=== PATIENT | female | born 1980 | race Caucasian/White ===

== ENCOUNTER → 2017-02-21 | Outpatient (CLI) | payer OTHER ==
[~2017-02-21] VITALS: Ht 175.3 cm; Wt 98.4 kg
[~2017-02-21] MED LIST: ACET50TA PO; HAIR1TAB5 PO; IBUP80TA PO; LIDOCAINE 2% INJ 100 MG/5 ML SDV (FOR ANES.) As Ordered ONE; MAGN1CAP PO; MULTCAP8 PO; NS 1,000 ML IV SCH; OMEP40CA2 PO; PREN27TA3 PO; PROPOFOL 200 MG/20 ML VIAL As Ordered ONE; RANI1TAB6 PO; ZYRT10CA PO
--- NOTE | 2017-02-21 08:56 | ROOR ---
Patient Name: Cydney Dinero Procedure Date: 02/21/2017 8:37 AM Date of : 1980 Age: 37 Room: [facility] Gender: Female Note Status: Finalized Procedure: Upper GI endoscopy Indications: Heartburn, Suspected esophageal reflux Providers: Wil MCMILLAN MD Referring MD: Tia DOSS NP Requesting Provider: Medicines: Monitored Anesthesia Care Complications: No immediate complications. Procedure: Pre-Anesthesia Assessment: - The heart rate, respiratory rate, oxygen saturations, blood pressure, adequacy of pulmonary ventilation, and response to care were monitored throughout the procedure. The Endoscope was introduced through the mouth, and advanced to the second part of duodenum. The upper GI endoscopy was accomplished without difficulty. The patient tolerated the procedure well. Findings: Minimal inflammation was found in the gastric antrum. Biopsies were taken with a cold forceps for Helicobacter pylori testing. The esophagus was normal. The stomach was otherwise normal. The examined duodenum was normal. Impression: - Minimal gastritis. Biopsied. - Otherwise normal stomach. - Normal esophagus. - Normal examined duodenum. Recommendation: - Follow an antireflux regimen. - Continue present medications. - Consider reducing Omeprazole to 20 mg q day after 3 months.--Please let me know. - Telephone endoscopist for pathology results in 2 weeks. Wil Mcmillan MD Wil MCMILLAN MD 02/21/2017 8:55:52 AM This report has been signed electronically. Number of Addenda: 0 Note Initiated On: 02/21/2017 8:37 AM Estimated Blood Loss: Estimated blood loss: none.
[2017-02-21 09:20] VITALS: BP 137/71
== END ==
LOC: M OPP 07:29
PROVIDERS: ATTEND Internal Medicine Gastroenterology
DX: R12 Heartburn (principal); K29.70 Gastritis, unspecified, without bleeding; R06.83 Snoring; Z79.899 Other long term (current) drug therapy

== ENCOUNTER → 2017-07-01 | Outpatient (REF) | payer OTHER ==
[~2017-07-01] MED LIST changes: -LIDOCAINE 2% INJ 100 MG/5 ML SDV (FOR ANES.) As Ordered ONE; -NS 1,000 ML IV SCH; -PROPOFOL 200 MG/20 ML VIAL As Ordered ONE
== END ==
LOC: M LAB REF 13:09
PROVIDERS: ATTEND Obstetrics & Gynecology
DX: B37.3 Candidiasis of vulva and vagina (principal)

== ENCOUNTER → 2018-05-30 | Outpatient (CLI) | payer OTHER | LOC: M RAD 16:08 | DX: K40.90 Unilateral inguinal hernia, without obstruction or gangrene, not specified as recurrent (principal) | CPT/HCPCS: 76857 ==

== ENCOUNTER → 2019-07-13 | Outpatient (CLI) | payer OTHER ==
[~2019-07-13] MED LIST changes: -ACET50TA PO; +MAPA500T17 PO
--- NOTE | 2019-07-22 10:51 | SLEEPHOME ---
DATE OF PROCEDURE: 07/13/2019 ORDERED BY: Gabe Foley PA-C Diagnostic home sleep testing was performed due to concern for the obstructive sleep apnea syndrome. For testing a nocturnal T3 respiratory monitoring device was used. Continuous record was made of pulse, oxygen saturation, airflow, chest, abdominal strain and body position. 9 hours and 59 minutes of data were reviewed. There were 5 hours and 1 minute marked as time in bed. During the interval marked time in bed, there were 82 respiratory events identified of 10 seconds in duration or greater for a respiratory event index of 16.3. The events were primarily obstructive, more common in the supine posture but not exclusive to that position. Baseline pulse rate 77 beats per minute, pulse rate ranged 61-113. Baseline saturation 95%, saturations fell to 90%. Testing was performed in both the supine and nonsupine positions. IMPRESSION: Abnormal home sleep testing with repetitive respiratory events and oxygen desaturations to 90% with a respiratory event index of 16.3 is consistent with the obstructive sleep apnea syndrome. RECOMMENDATIONS: The patient should be encouraged to undergo a formal sleep evaluation
== END ==
LOC: M SLEEP HO 10:11
PROVIDERS: ATTEND Physician Assistant
DX: G47.9 Sleep disorder, unspecified (principal)

== ENCOUNTER → 2019-07-14 | Outpatient (CLI) | payer OTHER ==
[2019-07-14 11:04] LABS: BASO % 0.5 % (0.0-1.0); EOS # 0.3 10^3/uL (0.0-0.50); EOS % 4.5 % (0.0-3.0); HEMATOCRIT 41.3 % (36.0-47.0); HEMOGLOBIN 13.6 g/dl (12.0-15.5); LYMPH # 2.2 10^3/uL (1.5-4.5); LYMPH % 29.6 % (24.0-44.0); MEAN CORPUSCULAR HEMOGLOBIN 29.1 pg (27.0-33.0); MEAN CORPUSCULAR HGB CONC 32.9 g/dl (32.0-36.5); MEAN CORPUSCULAR VOLUME 88.2 fl (80.0-96.0); MONO # 0.6 10^3/uL (0.0-0.8); MONO % 7.4 % (0.0-5.0); NEUTROPHILS # 4.4 10^3/uL (1.8-7.7); NEUTROPHILS % 57.5 % (36.0-66.0); PLATELET COUNT, AUTOMATED 244 10^3/uL (150-450); RED BLOOD COUNT 4.68 10^6/uL (4.00-5.40); WHITE BLOOD COUNT 7.6 10^3/uL (4.0-10.0)
[2019-07-14 11:26] LABS: HEMOGLOBIN A1c 5.9 %
[2019-07-14 11:35] LABS: ALBUMIN 3.9 GM/DL (3.2-5.2); ALT/SGPT 59 U/L (12-78); BILIRUBIN,TOTAL 0.5 MG/DL (0.2-1.0); BLOOD UREA NITROGEN 11 MG/DL (7-18); CALCIUM LEVEL 9.5 MG/DL (8.5-10.1); CARBON DIOXIDE LEVEL 28 MEQ/L (21-32); CHLORIDE LEVEL 108 MEQ/L (98-107); CHOLESTEROL LEVEL 199 MG/DL (<200); CHOLESTEROL RISK RATIO 4.326 (<5); CREATININE FOR GFR 0.93 MG/DL (0.55-1.30); FREE T4 1.25 NG/DL (0.76-1.46); GLOMERULAR FILTRATION RATE > 60.0 (>60); GLUCOSE, FASTING 96 MG/DL (70-100); HDL CHOLESTEROL 46 MG/DL (>40); LDL CHOLESTEROL 129 MG/DL (<100); NON-HDL-C 153 MG/DL; POTASSIUM SERUM 4.5 MEQ/L (3.5-5.1); SODIUM LEVEL 141 MEQ/L (136-145); TOTAL PROTEIN 7.6 GM/DL (6.4-8.2); TRIGLYCERIDES LEVEL 118 MG/DL (<150)
== END ==
LOC: M LAB 09:52
PROVIDERS: ATTEND Physician Assistant
DX: Z13.29 Encounter for screening for other suspected endocrine disorder (principal); Z13.220 Encounter for screening for lipoid disorders

== ENCOUNTER 2020-10-02 15:31 | Emergency (ER) | payer OTHER ==
[~2020-10-02] VITALS: Ht 175.3 cm; Wt 100.0 kg
[~2020-10-02 15:31] MED LIST changes: -OMEP40CA2 PO; +OMEP40CA97 PO; +RANI-397 PO; -RANI1TAB6 PO
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
[2020-10-02] MEDS ORDERED: CYCL-707 PO (17:22)
[2020-10-02] MEDS ORDERED: NORC1TAB7 PO (17:22)
[2020-10-02 17:39] VITALS: BP 146/64
== END 2020-10-02 17:40 | disposition home or self-care (01) ==
LOC: M ED 15:31
DX: S00.83XA Contusion of other part of head, initial encounter (principal); S70.02XA Contusion of left hip, initial encounter; S40.212A Abrasion of left shoulder, initial encounter; V43.52XA Car driver injured in collision with other type car in traffic accident, initial encounter; Y92.410 Unspecified street and highway as the place of occurrence of the external cause; Z79.899 Other long term (current) drug therapy

== ENCOUNTER 2020-10-04 15:37 | Emergency (ER) | payer OTHER ==
[~2020-10-04] VITALS: Ht 175.3 cm; Wt 100.4 kg
[2020-10-04 15:37] VITALS: BP 138/84
[~2020-10-04 15:37] MED LIST changes: +CYCL-707 PO; +NORC1TAB7 PO
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
== END 2020-10-04 17:15 | disposition home or self-care (01) ==
LOC: M ED 15:37
DX: S43.402D Unspecified sprain of left shoulder joint, subsequent encounter (principal); V43.52XD Car driver injured in collision with other type car in traffic accident, subsequent encounter; Z79.899 Other long term (current) drug therapy

== ENCOUNTER → 2020-11-03 | Outpatient (CLI) | payer SELFPAY | LOC: M LABSMTC 19:14 | PROVIDERS: ATTEND Pediatrics | DX: Z11.59 Encounter for screening for other viral diseases (principal) ==

== ENCOUNTER → 2021-02-27 | Outpatient (CLI) | payer OTHER, SELFPAY ==
--- NOTE | 2021-02-27 17:55 | REP ---
INDICATION: PAIN. COMPARISON: CT BONE WINDOWS ABDOMEN PELVIS 06/25/2016 TECHNIQUE: AP LATERAL 5 VIEWS INCLUDING CONED LATERAL OF THE LUMBOSACRAL JUNCTION FINDINGS: AP view shows no evidence of the scoliosis in the lumbar spine pedicles spinous transverse processes are intact there is slight dextroconvex curvature of the mid lower thoracic spine on the uppermost field of the AP view. Or upper quadrant calcification consistent with a gallstone or hepatic calcification, both were seen on the previous CT. Sacral ala foramina and SI joints symmetric and grossly normal. No erosion or sclerosis about those joints pelvic rim intact iliac wings seen in part were unremarkable hip joint space is symmetric. Pubic rami visible were also unremarkable. Lateral view show normal lordosis. There is very slight narrowing at L5-S1 disc space. The other disc space heights and all other T bro body heights from T10 through S1 were normal. No spondylolysis or spondylolisthesis. Minor hypertrophic facet changes at L4-5 and L5-S1. IMPRESSION: 1. Some facet arthropathy L4-5 and L5-S1 and minimal disc space narrowing at L5-S1. No compression deformity or destructive lesion. No lumbar scoliosis. The lower midthoracic region does show some dextroconvex curvature but is only seen in part on the AP view which only extends to T8. 2. Normal lordosis. No spondylolysis or spondylolisthesis. SI joints sacral ala and foramina unremarkable. <Electronically signed by Mega Toney > 02/27/21 2120
== END ==
LOC: M SOG 15:38
PROVIDERS: ATTEND Orthopaedic Surgery Sports Medicine
DX: M54.16 Radiculopathy, lumbar region (principal); M25.78 Osteophyte, vertebrae

== ENCOUNTER 2021-04-10 09:17 | Emergency (ER) | payer OTHER ==
[~2021-04-10] VITALS: Ht 175.3 cm; Wt 101.7 kg
[2021-04-10 09:48] LABS: BASO # 0.1 10^3/uL (0.0-0.2); BASO % 0.7 % (0.0-1.0); EOS # 0.3 10^3/uL (0.0-0.5); EOS % 3.2 % (0.0-3.0); HEMATOCRIT 39.3 % (36.0-47.0); HEMOGLOBIN 12.9 g/dl (12.0-15.5); LYMPH % 34.5 % (24.0-44.0); MEAN CORPUSCULAR HEMOGLOBIN 29.5 pg (27.0-33.0); MEAN CORPUSCULAR HGB CONC 32.8 g/dl (32.0-36.5); MEAN CORPUSCULAR VOLUME 89.9 fl (80.0-96.0); MONO # 0.6 10^3/uL (0.0-0.8); MONO % 7.1 % (2.0-8.0); NEUTROPHILS # 4.6 10^3/uL (1.5-8.5); NEUTROPHILS % 53.9 % (36.0-66.0); PLATELET COUNT, AUTOMATED 271 10^3/uL (150-450); RED BLOOD COUNT 4.37 10^6/uL (4.00-5.40); WHITE BLOOD COUNT 8.6 10^3/uL (4.0-10.0)
[2021-04-10 10:05] LABS: INR 0.93; PROTHROMBIN TIME 12.7 SECONDS (12.5-14.3)
[2021-04-10 10:06] LABS: PARTIAL THROMBOPLASTIN TIME 26.6 SECONDS (24.2-38.5)
[2021-04-10 10:09] LABS: D-DIMER QUANT 431.03 ng/ml (<500)
[2021-04-10 10:21] LABS: HCG, SERUM QUALITATIVE NEGATIVE (NEGATIVE)
[2021-04-10 10:22] LABS: ALBUMIN 4.1 GM/DL (3.2-5.2); ALT/SGPT 50 U/L (12-78); BILIRUBIN,DIRECT 0.2 MG/DL (0.0-0.2); BILIRUBIN,TOTAL 0.5 MG/DL (0.2-1.0); BLOOD UREA NITROGEN 15 MG/DL (7-18); CALCIUM LEVEL 9.9 MG/DL (8.5-10.1); CARBON DIOXIDE LEVEL 27 MEQ/L (21-32); CHLORIDE LEVEL 104 MEQ/L (98-107); CREATININE FOR GFR 0.91 MG/DL (0.55-1.30); FREE T4 1.23 NG/DL (0.76-1.46); GLOMERULAR FILTRATION RATE > 60.0 (>58); GLUCOSE, FASTING 97 MG/DL (70-100); LIPASE 76 U/L (73-393); POTASSIUM SERUM 4.4 MEQ/L (3.5-5.1); SODIUM LEVEL 137 MEQ/L (136-145); TOTAL PROTEIN 7.9 GM/DL (6.4-8.2)
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
[2021-04-10 15:59] VITALS: BP 122/70
--- NOTE | 2021-04-11 09:26 | ECGEPIP ---
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
--- NOTE | 2021-04-11 13:45 | ECGEPIP ---
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
== END 2021-04-10 17:03 | disposition home or self-care (01) ==
LOC: M ED 09:17
DX: R07.9 Chest pain, unspecified (principal); K21.9 Gastro-esophageal reflux disease without esophagitis; Z79.899 Other long term (current) drug therapy

== ENCOUNTER → 2021-12-15 | Outpatient (REF) ==
[~2021-12-15] MED LIST changes: +OMEP40CA4 PO; -OMEP40CA97 PO
== END ==
LOC: M LABSMTC 13:13
PROVIDERS: ATTEND Pediatrics
DX: Z11.52 Encounter for screening for COVID-19 (principal)

== ENCOUNTER → 2022-04-05 | Outpatient (CLI) | payer BC ==
[~2022-04-05] MED LIST changes: +ZYRTTAB8 PO
== END ==
LOC: M LABSMTC 10:05
PROVIDERS: ATTEND Anesthesiology
DX: Z01.812 Encounter for preprocedural laboratory examination (principal)

== ENCOUNTER 2022-04-09 07:02 | Day surgery (SDC) | payer BC ==
[~2022-04-09] VITALS: Ht 175.3 cm; Wt 97.5 kg
[~2022-04-09 07:02] MED LIST changes: +LR 1,000 ML IV ONE; +ceFAZolin SOD 2 GM in IV 1 EA IV ONE
[2022-04-09] MEDS ORDERED: SCOPOLAMINE 1MG TRANSDERMAL PATCH TOP ONE (07:50)
[2022-04-09] MEDS ORDERED: diphenhydrAMINE 50MG/ML VIAL (J1200) As Ordered ONE (08:42)
[2022-04-09] MEDS ORDERED: propofoL 200 MG/20 ML VIAL As Ordered ONE (08:42)
[2022-04-09] MEDS ORDERED: ROCURONIUM BROMIDE 50 MG/5 ML VIAL As Ordered ONE (08:42)
[2022-04-09] MEDS ORDERED: dexameTHASONE 4 MG/ML 1ML VIAL (J1100 PER 1MG) As Ordered ONE (08:42)
[2022-04-09] MEDS ORDERED: LIDOCAINE 2% 100MG/5ML SDV (FOR ANES.) As Ordered ONE (08:42)
[2022-04-09] MEDS ORDERED: ONDANSETRON 4MG/2ML VIAL As Ordered ONE (08:42)
[2022-04-09] MEDS ORDERED: fentaNYL 250 MCG/5 ML INJECTION As Ordered ONE (08:43)
[2022-04-09] MEDS ORDERED: MIDAZOLAM INJ 2MG/2ML VIAL (J2250 PER 1MG) As Ordered ONE (08:43)
[2022-04-09] MEDS ORDERED: METOCLOPRAMIDE INJ 10MG/2ML VIAL (J2765 PER 1) As Ordered ONE (08:55)
[2022-04-09] MEDS ORDERED: KETOROLAC 60MG 2ML VIAL As Ordered ONE (08:56)
[2022-04-09] MEDS ORDERED: BUPIVACAINE/EPIN 0.25% 30 ML VIAL As Ordered ONE (09:34)
[2022-04-09] MEDS ORDERED: SUGAMMADEX SODIUM 500 MG/5 ML VIAL (BRIDION) As Ordered ONE (10:20)
[2022-04-09] MEDS ORDERED: HYDROmorphone HCL 2MG/ML 1ML VIAL As Ordered ONE (10:20)
[2022-04-09] MEDS ORDERED: ACETAMINOPHEN 1000MG 100ML IV BTL (OFIRMEV) (J0131 PER 10MG) As Ordered ONE (10:37)
[2022-04-09] MEDS ORDERED: hydrALAZINE 20MG/ML 1ML VIAL (J0360 PER 20MG) As Ordered ONE (10:41)
[2022-04-09] MEDS ORDERED: LABETALOL 100MG/20ML VIAL As Ordered ONE (10:43)
[2022-04-09] MEDS ORDERED: NORCO, ANEXSIA 5/325MG TABLET (HYDROcodone/ACETAMINOPHEN) PO PRN (12:15)
[2022-04-09] MEDS ORDERED: fentaNYL 100 MCG/2 ML INJECTION IV PRN (12:15)
[2022-04-09] MEDS ORDERED: ONDANSETRON 4MG/2ML VIAL IV PRN (12:15)
[2022-04-09] MEDS ORDERED: HYDROMORPHONE HCL 0.5 MG/ 0.5 ML SYRINGE (J1170 PER 1) IV PRN (12:15)
[2022-04-09] MEDS ORDERED: oxyCODONE 5MG TAB PO PRN (12:15)
[2022-04-09] MEDS ORDERED: LR 1,000 ML IV SCH (12:15)
[2022-04-09 12:47] VITALS: BP 114/57
== END 2022-04-09 13:09 | disposition home or self-care (01) ==
LOC: M SDC 07:02
PROVIDERS: ATTEND Surgery
DX: K41.20 Bilateral femoral hernia, without obstruction or gangrene, not specified as recurrent (principal); K21.9 Gastro-esophageal reflux disease without esophagitis; Z79.899 Other long term (current) drug therapy
CPT/HCPCS: 49650; 88302; C1781; J0131; J0690; J1100; J1170; J1200; J1885; J2250; J2405; J2765; J3010; S2900

== ENCOUNTER → 2022-09-22 | Outpatient (REF) ==
[~2022-09-22] MED LIST changes: -LR 1,000 ML IV ONE; -ceFAZolin SOD 2 GM in IV 1 EA IV ONE
[2022-09-22 10:50] LABS: RSV AMPLIFICATION NEGATIVE (NEGATIVE)
== END ==
LOC: M LABSMTC 09:31
PROVIDERS: ATTEND Family Medicine
DX: Z11.52 Encounter for screening for COVID-19 (principal)

== ENCOUNTER → 2023-11-29 | Outpatient (REF) | LOC: M EMP 07:48 | PROVIDERS: ATTEND Family Medicine | DX: Z11.52 Encounter for screening for COVID-19 (principal) ==

== ENCOUNTER → 2024-11-26 | Outpatient (REF) | LOC: M EMP 15:16 | PROVIDERS: ATTEND Family Medicine | DX: Z11.52 Encounter for screening for COVID-19 (principal) ==

== ENCOUNTER → 2025-07-08 | Outpatient (CLI) | payer BC | LOC: M RAD 14:52 | PROVIDERS: ATTEND Physician Assistant | DX: M25.541 Pain in joints of right hand (principal); M79.644 Pain in right finger(s) ==